=== PATIENT | female | born 1975 | race African-American/Black ===

== ENCOUNTER 2020-06-18 17:28 | Emergency (ER) | payer MEDICAID ==
[~2020-06-18] VITALS: Ht 175.3 cm; Wt 118.9 kg
[2020-06-18 17:53] VITALS: BP 155/62
[2020-06-18] MEDS ORDERED: ACETAMINOPHEN 325MG TABLET PO STA (18:05)
[2020-06-18] MEDS ORDERED: SODIUM CHLORIDE 0.9% 1,000 ML IV ONE (18:15)
[2020-06-18 18:39] LABS: BASOPHILS % 1.4 % (0.0-2.0); EOSINOPHILS % 1.1 % (0.0-5.0); HEMATOCRIT. 35.1 % (36.0-48.0); LYMPHOCYTES % 30.1 % (20.0-50.0); MEAN CORPUSCULAR HEMOGLOBIN 27.9 pg (28.0-32.0); MEAN CORPUSCULAR VOLUME 81.8 fL (81.0-99.0); MEAN PLATELET VOLUME 7.2 fl (7.4-10.4); MONOCYTES % 6.1 % (2.0-8.0); NEUTROPHILS % 61.3 % (40.0-76.0); PLATELET 302 x1000/uL (130-400); RED BLOOD CELL COUNT 4.29 mill/uL (4.2-5.4); RED CELL DISTRIBUTION WIDTH 15.2 % (11.6-14.6)
[2020-06-18 18:48] LABS: CHLORIDE 109 mEq/L (98-107)
[2020-06-18 18:51] LABS: CLARITY URINE CLOUDY (CLEAR); COLOR URINE ORANGE (YELLOW); KETONES URINE TRACE (NEGATIVE); LEUKOCYTE ESTERASE URINE TRACE (NEGATIVE); NITRITE URINE NEGATIVE (NEGATIVE); OCCULT BLOOD URINE 3+ (NEGATIVE); PROTEIN URINE 1+ (NEGATIVE); SPECIFIC GRAVITY URINE 1.025 (1.005-1.030)
[2020-06-18 18:51] LABS: HCG SCREEN NEGATIVE
[2020-06-18 18:59] LABS: B-HCG QUANTITATIVE < 1 mIU/mL (<3)
== END 2020-06-18 18:55 | disposition home or self-care (01) ==
LOC: ER 17:55
DX: N93.9 Abnormal uterine and vaginal bleeding, unspecified (principal); Z88.0 Allergy status to penicillin; Z98.890 Other specified postprocedural states
CPT/HCPCS: 36415; 80053; 81003; 84702; 84703; 85025; 86850; 86900; 86901; 87086; 99283; J7030

== ENCOUNTER 2023-05-25 23:34 | Emergency (ER) | payer MEDICAID, OTHER ==
[~2023-05-25] VITALS: Ht 175.3 cm; Wt 138.0 kg
[2023-05-25 23:53] VITALS: O2SAT 100
[2023-05-26] MEDS ORDERED: KETOROLAC 30MG/ML VIAL IM ONE (01:45)
[2023-05-26] MEDS ORDERED: LIDOCAINE 5% PATCH TOP SCH (01:45)
[2023-05-26] MEDS ORDERED: HYDROCODONE/ACETAMINOPHEN 5/325MG TABLET PO ONE (01:45)
[2023-05-26 03:00] VITALS: BP 143/74; PULSE 87; RESP 18; TEMP 98.1
[2023-05-26] MEDS ORDERED: ACET-2708 MT (03:08)
== END 2023-05-26 04:50 | disposition home or self-care (01) ==
LOC: ER 23:34
DX: M79.605 Pain in left leg (principal); Z98.890 Other specified postprocedural states; Z88.0 Allergy status to penicillin
CPT/HCPCS: 99285; 93971; 73590; 96372; J1885; Z7610